=== PATIENT | female | born 1965 | race Caucasian/White ===

== ENCOUNTER 2017-03-04 22:25 | Emergency (ER) | payer OTHER ==
[~2017-03-04] VITALS: Ht 160 cm; Wt 61.4 kg
[2017-03-04 22:39] VITALS: Ht 160 cm; Wt 61.4 kg
[2017-03-05] MEDS ORDERED: LIDOCAINE/MYLANTA 40 ML BTL PO ONE
[2017-03-05] MEDS ORDERED: LORAZEPAM 2 MG INJ IV ONE
--- NOTE | 2017-03-05 00:18 | RADRPT ---
PROCEDURE: XR Chest. CLINICAL INDICATION: Chest pain. TECHNIQUE: Single frontal chest x-ray. COMPARISON: None. FINDINGS: The cardiomediastinal silhouette is unremarkable. There is no congestive heart failure.. No focal i nfiltrate is seen. There is no pleural effusion. There is no pneumothorax. The osseous structures are unremarkable. IMPRESSION: 1. No active disease. RPTAT: [facility]VK .David Canales MD, MD Date Time Electronically viewed and signed by .David Canales MD, MD on 03/05/2017 00:18 .K/
--- NOTE | 2017-03-05 01:24 | ERD ---
ER Documentation Chief Complaint Chief Complaint BIBA RA89,c/o left epigastric sharp pain radiating to left shoulder HPI This is a 51-year-old female comes in complains of epigastric sharp pain rating to her left shoulder. Patient has been under a lot of stress lately. Denies any fevers or chills. Denies any nausea or vomiting. Pain was mild to moderate intensity was exacerbated by stressful and anxious feelings. Patient has no cardiac history. No other current complaints. ROS All systems reviewed and are negative except as per history of present illness. PMhx/Soc History of Surgery: Yes (tonsilectomy, rhino polyps removed) Anesthesia Reaction: No Hx Neurological Disorder: No Hx Respiratory Disorders: No Hx Cardiac Disorders: No Hx Psychiatric Problems: Yes (anxiety) Hx Miscellaneous Medical Probl: Yes (hypothyroidism on meds) Hx Alcohol Use: Yes (rarely) Hx Substance Use: No Hx Tobacco Use: No Smoking Status: Never smoker Physical Exam Vitals Vital Signs Date Time Temp Pulse Resp B/P Pulse Ox O2 Delivery O2 Flow Rate FiO2 03/05/17 00:00 65 13 105/61 100 Room Air 03/04/17 23:00 57 16 104/64 100 Room Air 03/04/17 22:39 97.8 59 15 101/65 100 Physical Exam Const: [] Head: Atraumatic Eyes: Normal Conjunctiva ENT: Normal External Ears, Nose and Mouth. Neck: Full range of motion..~ No meningismus. Resp: Clear to auscultation bilaterally Cardio: Regular rate and rhythm, no murmurs Abd: Soft, non tender, non distended. Normal bowel sounds Skin: No petechiae or rashes Back: No midline or flank tenderness Ext: No cyanosis, or edema Neur: Awake and alert Psych: Normal Mood and Affect Result Diagram: 03/04/17225603/04/172256 Results 24 hrs Laboratory Tests Test 03/04/17 22:57 White Blood Count 8.210^3/ul Red Blood Count 3.8910^6/ul Hemoglobin 11.8g/dl Hematocrit 34.4% Mean Corpuscular Volume 88.4fl Mean Corpuscular Hemoglobin 30.3pg Mean Corpuscular Hemoglobin Concent 34.3g/dl Red Cell Distribution Width 12.1% Platelet Count 10746^3/UL Mean Platelet Volume 10.3fl Neutrophils % 62.3% Lymphocytes % 28.4% Monocytes % 7.8% Eosinophils % 0.5% Basophils % 0.6% Nucleated Red Blood Cells % 0.0/100WBC Neutrophils # 5.110^3/ul Lymphocytes # 2.310^3/ul Monocytes # 0.610^3/ul Eosinophils # 0.010^3/ul Basophils # 0.110^3/ul Nucleated Red Blood Cells # 0.010^3/ul Sodium Level 142mmol/L Potassium Level 3.5mmol/L Chloride Level 107mmol/L Carbon Dioxide Level 24mmol/L Anion Gap 15 Blood Urea Nitrogen 18mg/dl Creatinine 0.84mg/dl Glucose Level 112mg/dl Calcium Level 9.3mg/dl Total Bilirubin 0.3mg/dl Direct Bilirubin 0.00mg/dl Indirect Bilirubin 0.3mg/dl Aspartate Amino Transf (AST/SGOT) 20IU/L Alanine Aminotransferase (ALT/SGPT) 29IU/L Alkaline Phosphatase 55IU/L Troponin I < 0.012ng/ml B-Type Natriuretic Peptide 139PG/ML Total Protein 7.5g/dl Albumin 4.2g/dl Globulin 3.30g/dl Albumin/Globulin Ratio 1.27 Current Medications Medications (Trade) Dose Ordered Sig/[place] Route PRN Reason Start Time Stop Time Status Last Admin Dose Admin Lorazepam (Ativan) 1 mg ONCE ONCE IV 03/05/17 00:00 03/05/17 00:01 DC 03/05/17 00:10 Miscellaneous Medication (Gi Cocktail (2)) 40 ml ONCE ONCE PO 03/05/17 00:00 03/05/17 00:01 DC 03/05/17 00:10 Procedures/MDM EKG: Rate/Rhythm: [Normal Sinus Rhythm] QRS, ST, T-waves: [No changes consistent w/ acute ischemia] Impression: [No evidence of ischemia or arrhythmia] Chest X-ray 1V Interpreted by me: Soft Tissue: No acute abnormalities Bones: No acute abnormalities Mediastinum/Cardiac Silhouette/Lungs: [No acute abnormalities] Patient's thoracic symptoms have stabilized while in the department and are stable for outpatient follow up. Exam and work up not consistent w/ ischemia, arrhythmia, PE or dissection. Departure Diagnosis: Primary Impression: Chest pain Chest pain type: unspecified Qualified Code: R07.9 - Chest pain, unspecified type Additional Impression: Anxiety Condition: Stable BENOIT GALINDO Mar 05, 2017 01:24
[2017-03-05] MEDS ORDERED: LORA-441 PO (01:25)
[2017-03-05 01:48] VITALS: BP 105/61; PULSE 59; RESP 13
== END 2017-03-05 01:49 | disposition home or self-care (01) ==
LOC: E/R 22:25
DX: F41.9 Anxiety disorder, unspecified (principal); R07.9 Chest pain, unspecified; E03.9 Hypothyroidism, unspecified; R40.2142 Coma scale, eyes open, spontaneous, at arrival to emergency department; R40.2252 Coma scale, best verbal response, oriented, at arrival to emergency department; R40.2362 Coma scale, best motor response, obeys commands, at arrival to emergency department; R06.02 Shortness of breath
CPT/HCPCS: 36415; 71010; 80053; 83880; 84484; 85025; 93005; 96374; J2060; Z7502; Z7610